=== PATIENT | male | born 1975 | race Asian ===

== ENCOUNTER 2019-03-03 12:10 | Emergency (ER) | payer OTHER ==
[2019-03-03 12:35] VITALS: TEMP 98.2; BMI 24.3
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
[2019-03-03] MEDS ORDERED: diazePAM 5 MG TABLET PO ONE (13:33)
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
[2019-03-03] MEDS ORDERED: diazePAM 5 MG TABLET ONE (15:28)
[2019-03-03] MEDS ORDERED: KETOROLAC TROMETHAMINE 60 MG/2 ML VIAL IM ONE (16:30)
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
[2019-03-03] MEDS ORDERED: KETOROLAC TROMETHAMINE 60 MG/2 ML VIAL ONE (16:43)
[2019-03-03 17:04] VITALS: BP 111/81; PULSE 92
== END 2019-03-03 17:00 | disposition home or self-care (01) ==
LOC: JER 12:10
PROC: 3E0233Z Introduction of Anti-inflammatory into Muscle, Percutaneous Approach (ICD-10-PCS; principal; 2019-03-03)
DX: S09.8XXA Other specified injuries of head, initial encounter (principal); M54.2 Cervicalgia; R51 Headache; V43.52XA Car driver injured in collision with other type car in traffic accident, initial encounter; Y92.414 Local residential or business street as the place of occurrence of the external cause; Y93.89 Activity, other specified; Y99.8 Other external cause status; I10 Essential (primary) hypertension; F17.210 Nicotine dependence, cigarettes, uncomplicated
CPT/HCPCS: 70450-TC; 72125-TC; 99282-25

== ENCOUNTER 2022-09-26 14:15 | Emergency (ER) | payer OTHER ==
[2022-09-26 14:24] VITALS: RESP 16; BMI 24.7
[2022-09-26 15:47] LABS: BASO % 0.8 % (0-2.0); EOS % 1.3 % (0-4.5); HEMATOCRIT 39.5 % (35.4-49); HEMOGLOBIN 13.7 GM/dL (11.7-16.9); LYMPH % 32.4 % (8-40); MCH 32.5 pg (25.7-33.7); MCHC 34.7 g/dl (32.0-35.9); MEAN CELL VOLUME 93.8 fl (80-96); MEAN PLT VOLUME 8.2 fl (7.5-11.1); MONO % 6.4 % (3.8-10.2); NEUT % 59.1 % (42.8-82.8); PLATELET COUNT 279 10^3/uL (134-434); RBC 4.21 M/mm3 (4.00-5.60); RDW 13.5 % (11.9-15.9); WHITE BLOOD COUNT 7.6 K/mm3 (4.0-10.0)
[2022-09-26 15:54] LABS: INR 1.24 (0.83-1.09); PROTHROMBIN TIME (PATIENT) 14.4 SEC (9.7-13.0)
[2022-09-26 15:57] LABS: ACTIVATED PTT 34.6 SECONDS (25.2-36.5)
[2022-09-26 17:44] LABS: POTASSIUM 4.9 mmol/L (3.5-5.1)
[2022-09-26 17:46] LABS: CALCIUM 9.8 mg/dL (8.5-10.1)
[2022-09-26 17:47] LABS: ALBUMIN 3.6 g/dl (3.4-5.0); BLOOD UREA NITROGEN 8.2 mg/dL (7-18)
[2022-09-26 17:50] LABS: CREATININE 0.7 mg/dL (0.55-1.3)
[2022-09-26 17:52] LABS: BILIRUBIN,TOTAL 0.4 mg/dL (0.2-1); TOT PROT 7.5 g/dl (6.4-8.2)
[2022-09-26 18:55] VITALS: BP 126/85; PULSE 85; TEMP 98.9
[2022-09-26 20:09] LABS: BASO % 0.6 % (0-2.0); EOS % 2.6 % (0-4.5); HEMATOCRIT 39.6 % (35.4-49); HEMOGLOBIN 13.6 GM/dL (11.7-16.9); LYMPH % 45.2 % (8-40); MCH 32.3 pg (25.7-33.7); MCHC 34.3 g/dl (32.0-35.9); MEAN CELL VOLUME 94.3 fl (80-96); MEAN PLT VOLUME 7.6 fl (7.5-11.1); MONO % 8.9 % (3.8-10.2); NEUT % 42.7 % (42.8-82.8); PLATELET COUNT 299 10^3/uL (134-434); RDW 13.3 % (11.9-15.9)
== END 2022-09-26 20:46 | disposition home or self-care (01) ==
LOC: JER 14:15
DX: K62.5 Hemorrhage of anus and rectum (principal); R11.0 Nausea; R00.0 Tachycardia, unspecified; Z20.822 Contact with and (suspected) exposure to COVID-19
CPT/HCPCS: 36415; 74177-TC; 80053; 82272; 85025; 85610; 85730; 86850; 86900; 86901; 99285-25; C9803-CS; Q9967; U0003; U0005